=== PATIENT | female | born 1950 | race American Indian/Alaskan Native ===

== ENCOUNTER 2017-11-21 14:07 | Outpatient (CLI) | payer MEDICARE ==
--- NOTE | 2017-11-21 22:06 | XRay Report ---
FINAL REPORT EXAM: XR KNEE BILAT 4+V HISTORY: BILATERAL KNEE PAIN TECHNIQUE: Four views of the bilateral knees, 8 views total PRIORS: None. FINDINGS: Right knee: The bones appear demineralized. There is osteophyte formation of the patellofemoral joint without significant joint space narrowing. There is moderate narrowing of the lateral joint and mild narrowing of the medial joint with associated osteophyte formation. There is no evidence of acute fracture. The soft tissues are unremarkable. Left knee: The bones appear demineralized. There is osteophyte formation of the patellofemoral joint without significant joint space narrowing. There is moderate narrowing of the medial and lateral joints associated osteophyte formation. There is no evidence of acute fracture. The soft tissues are unremarkable. IMPRESSION: Osteopenia most likely due to osteoporosis Tricompartmental osteoarthrosis
== END 2017-11-21 14:08 | disposition home or self-care (01) ==
LOC: SPVIMAG 14:07
PROVIDERS: ATTEND Orthopaedic Surgery Sports Medicine
DX: M17.0 Bilateral primary osteoarthritis of knee (principal)